=== PATIENT | female | born 1950 ===

== ENCOUNTER 2019-07-18 13:07 | Outpatient (REF) | payer MEDICARE, SELFPAY ==
[2019-07-18 19:12] LABS: HCT 41.8 % (36.0-46.0); HGB 13.9 g/dL (12.0-15.5); Mean Corp. HGB Concentration 33.3 g/dL (32.0-36.0); Mean Corpuscular Hemoglobin 32.1 pg (27.0-33.0); Mean Corpuscular Volume 96.5 fL (80-95); Mean Platelet Volume 11.4 fL (8.0-11.0); Platelet Count 286 x1000/uL (130-400); RBC 4.33 m/cumm (4.00-5.20); RBC Distribution Width 13.6 % (11.7-14.6)
[2019-07-18 20:03] LABS: ESR 10 mm/hr (0-30)
[2019-07-18 20:17] LABS: D-Dimer 354 ng/mlFEU (<500)
[2019-07-18 21:00] LABS: C-Reactive Protein 0.36 mg/dL (0.0-0.3)
== END 2019-07-18 13:27 ==
LOC: NCHCN 13:07
PROVIDERS: PCP Registered Nurse; Visit Provider Internal Medicine
DX: F41.1 Generalized anxiety disorder (principal); R07.89 Other chest pain; M54.5 Low back pain
CPT/HCPCS: 85027; 85652; 85379; 86140